=== PATIENT | male | born 1980 | race Caucasian/White ===

== ENCOUNTER 2020-05-30 14:52 | Emergency (ER) | payer MEDICAID ==
--- NOTE | 2020-05-30 15:31 | ED Physician Documentation ---
PD HPI LOWER EXT INJURY - Stated complaint Stated Complaint: RT FOOT PX - Chief complaint Chief Complaint: Trauma Ext - History obtained from History obtained from: Patient - History of Present Illness PD HPI LOW EXT INJURY LOCATION: Right, Toe (great toe injury from dropped object 2 weeks ago and seen in other ER with Dx of broken great toes. Has post op shoe and crutches. Taking some pain OTC meds. Was improving and then dropped bottle onto same area 2 days ago. Has pain and bruising now and worse pain.) Type of injury: Blunt / blow (dropped bottle of fruit onto foot) Where injury occurred: Home (initial injury while in [employer] working 2 weeks ago. Repeat injury 2 days ago was at home.) Timing - onset: How many weeks ago (2 weeks ago with worse 2 days ago) Timing - details: Abrupt onset Worsened by: Moving, Palpating Associated symptoms: Swelling, Discolored (bruising color around the base of the toe and dorsum of the foot.), Other (having pain in right lower calf with cramps as well the past 2 days.). No: Weakness, Numbness Recently seen: Emergency Dept (2 weeks ago) Review of Systems Constitutional: denies: Fever, Chills Nose: denies: Rhinorrhea / runny nose, Congestion Throat: denies: Sore throat Respiratory: denies: Cough Skin: denies: Abrasion (s), Laceration (s) Neurologic: reports: Numbness (some numbness in great toe at times.). denies: Focal weakness PD PAST MEDICAL HISTORY - Past Medical History Past Medical History: No - Present Medications Home Medications: Ambulatory Orders Medication Instructions Recorded Confirmed Naproxen [EC-Naproxen] 500 mg PO BID #20 tablet. 05/30/20 Oxycodone HCl/Acetaminophen 1 each PO Q8H PRN #18 tablet 05/30/20 [Percocet 5-325 mg Tablet] - Allergies Allergies/Adverse Reactions: Allergies Allergy/AdvReac Type Severity Reaction Status Date / Time Penicillins Allergy Hives Verified 05/30/20 15:19 - Social History Does the pt smoke?: No Smoking Status: Never smoker PD ED PE NORMAL - Vitals Vital signs reviewed: Yes - General General: Alert and oriented X 3, Well developed/nourished, Other (appears in pain and only slowly able to remove his postop shoe and sock from that foot. ) - Derm Derm: Normal color, Warm and dry - Extremities Extremities: Other (right great toe with swelling and tenderness with some bruising color. No redness. No abrasions nor sores. There is some tenderness without swelling in proximal foot and some to lower calf.) - Neuro Neuro: Alert and oriented X 3, No motor deficit, No sensory deficit Results - Vitals Vitals: Vital Signs - 24 hr 05/30/20 05/30/20 15:14 16:40 Temperature 36.3 C L 36.6 C Heart Rate 95 88 Respiratory 14 16 Rate Blood Pressure 140/99 H 130/90 H O2 Saturation 98 100 Oxygen O2 Source Room air - Rads (name of study) ribht great toe Radiology: Prelim report reviewed (comminuted fracture with mild displacement. Articular surface reasonable normal. ), See rad report duplex right lower ext Radiology: Prelim report reviewed (no DVT), See rad report PD MEDICAL DECISION MAKING - ED course Complexity details: reviewed results, re-evaluated patient, considered differential, d/w patient Departure - Departure Disposition: 01 Home, Self Care Clinical Impression: Foot pain, right Fractured great toe Qualifiers: Encounter type: initial encounter Fracture type: closed Phalanx: proximal Fracture alignment: displaced Laterality: right Qualified Code(s): S92.411A - Displaced fracture of proximal phalanx of right great toe, initial encounter for closed fracture Condition: Stable Record reviewed to determine appropriate education?: Yes Instructions: ED Fx Foot Follow-Up: Murtaza Raymond MD [Provider Admit Priv/Credential] - Prescriptions: Naproxen [EC-Naproxen] 500 mg PO BID #20 tablet. Oxycodone HCl/Acetaminophen [Percocet 5-325 mg Tablet] 1 each PO Q8H PRN #18 tablet PRN Reason: pain Comments: Continue with the firm soled postop shoe and crutches to reduce motion and weight on the toe and foot. Elevate rest and ice it often to reduce swelling and bruising. Use anti-inflammatory such as naproxen twice daily with food for the next 7 to 10 days. To that add Tylenol or oxycodone as needed for worse pain. Follow-up with orthopedics in about 7 to 10 days, call tomorrow for an appoin tment. At that point they will ensure its healing on track and does not need any different interventions. Discharge Date/Time: 05/30/20 16:40
[2020-05-30] MEDS ORDERED: IBUPROFEN 600 MG TABLET PO STA (15:42)
[2020-05-30] MEDS ORDERED: HYDROcod/ACETAM 5/325 MG TABLET PO STA (15:42)
--- NOTE | 2020-05-30 16:13 | XRAY Report ---
PROCEDURE: Toe(s) RT INDICATIONS: recent great toe fx; dropped jar on it and hurts TECHNIQUE: AP view of the foot and 2 views of the great toe obtained. COMPARISON: None FINDINGS: Bones: There is a comminuted fracture of the first proximal phalanx extending into the first interpha langeal joint. Minimal displacement and angulation of the distal fracture fragments is noted. No stephanie tional fracture is identified. No suspicious bony lesions. Soft tissues: No suspicious soft tissue densities. Soft tissue edema is seen in the great toe. IMPRESSION: Comminuted, minimally displaced, intra-articular fracture of the first proximal phalanx. Reviewed by: Jacques Shankar MD on 05/30/2020 3:12 PM [facility] Approved by: Jacques Shankar MD on 05/30/2020 3:12 PM [facility] Station ID: [id number]
--- NOTE | 2020-05-30 16:33 | Ultrasound Report ---
PROCEDURE: Duplex Ext Veins Right INDICATIONS: recent toe facture; now foot/calf pain TECHNIQUE: Real-time imaging, as well as color and pulse Doppler interrogation, were performed of the lower extr emity deep veins from the inguinal ligament to the popliteal fossa. COMPARISON: None. FINDINGS: The deep veins are normally compressible, and free of intraluminal thrombus. Color and pu lse Doppler demonstrate normal phasic intraluminal flow. There is normal augmentation response to di stal compression maneuver. IMPRESSION: No sonographic evidence of DVT. Reviewed by: Dereje Ramos MD on 05/30/2020 4:32 PM PST Approved by: Dereje Ramos MD on 05/30/2020 4:32 PM PST Station ID: [id number]
[2020-05-30 16:41] VITALS: BP 130/90
== END 2020-05-30 16:40 | disposition home or self-care (01) ==
LOC: ED 14:52
DX: S92.411A Displaced fracture of proximal phalanx of right great toe, initial encounter for closed fracture (principal); W20.8XXA Other cause of strike by thrown, projected or falling object, initial encounter; Y92.009 Unspecified place in unspecified non-institutional (private) residence as the place of occurrence of the external cause; M79.661 Pain in right lower leg
CPT/HCPCS: 73660; 93971; 99283; A9270